=== PATIENT | female | born 1990 | race Hispanic/Latino ===

== ENCOUNTER 2018-12-04 09:55 | Observation (INO) | payer BC ==
[~2018-12-04 09:55] MED LIST: PREN-196 PO; PREN1TAB89 PO
[2018-12-04] MEDS ORDERED: LACTATED RINGERS 1000ML 1,000 ML IV SCH (11:15)
[2018-12-04 11:16] LABS: APPEARANCE,URINE Clear (CLEAR); BILIRUBIN,URINE Negative (NEGATIVE); COLOR,URINE Yellow (YELLOW); GLUCOSE, URINE (UA) Negative (NEGATIVE); KETONES,URINE Negative (NEGATIVE); LEUKOCYTE ESTERASE ,URINE Trace (NEGATIVE); NITRATE,URINE Negative (NEGATIVE); OCCULT BLOOD,URINE Negative (NEGATIVE); PH,URINE 6.5 (5.0-8.0); PROTEIN,URINE Negative (NEGATIVE)
[2018-12-04 11:27] LABS: RBC,URINE 0-1 /HPF (0-1); WBC,URINE 0-1 /HPF (0-1)
[2018-12-04 11:28] LABS: BACTERIA,URINE Rare /HPF (None Seen); SQUAMOUS EPITHELIAL CELL,UR Rare /HPF (0-2)
== END 2018-12-04 12:58 | disposition home or self-care (01) ==
LOC: LDH 09:55
DX: O41.8X30 Other specified disorders of amniotic fluid and membranes, third trimester, not applicable or unspecified (principal); O26.893 Other specified pregnancy related conditions, third trimester; R10.9 Unspecified abdominal pain; Z3A.32 32 weeks gestation of pregnancy
CPT/HCPCS: 59025; 76819; 81001; G0378 ×3; 96360; 96361

== ENCOUNTER 2018-12-18 14:13 | Observation (INO) | payer BC ==
[~2018-12-18] VITALS: Ht 154.9 cm; Wt 68.0 kg
[2018-12-18 15:16] VITALS: BP 105/62
== END 2018-12-18 15:59 | disposition home or self-care (01) ==
LOC: LDH 14:13
DX: O26.893 Other specified pregnancy related conditions, third trimester (principal); N89.8 Other specified noninflammatory disorders of vagina; Z3A.34 34 weeks gestation of pregnancy
CPT/HCPCS: 59025; 76819; G0378 ×3

== ENCOUNTER 2019-01-02 08:49 | Observation (INO) | payer BC ==
[2019-01-05] MEDS ORDERED: PNV1TABL17 PO (18:00)
== END 2019-01-02 10:52 | disposition home or self-care (01) ==
LOC: LDH 08:49
PROVIDERS: ADMIT Specialist; ATTEND Specialist
DX: O41.03X0 Oligohydramnios, third trimester, not applicable or unspecified (principal); Z3A.36 36 weeks gestation of pregnancy
CPT/HCPCS: G0378 ×3; 59025; 76819